=== PATIENT | female | born 1985 | race Caucasian/White ===

== ENCOUNTER 2018-12-22 15:53 | Emergency (ER) | payer OTHER ==
[2018-12-22 16:09] VITALS: O2SAT 100
[2018-12-22] MEDS ORDERED: Sodium Chloride 0.9% 1000 ML 1,000 ML IV STA (16:15)
[2018-12-22] MEDS ORDERED: BABY ASPIRIN 81 MG CHEW PO ONE (16:15)
--- NOTE | 2018-12-22 16:19 | ERPHSYRPT ---
- History of Present Illness Time Seen by Provider: 12/22/18 16:17 Historian: patient Patient Subjective Stated Complaint: pt here for sob for over a month, getting worse. she was seen 2 days ago at a clinic and had blood work done and was told today to follow up in er, pt denies cough or fever, no pain Triage Nursing Assessment: pt alert, walked in, resp easy,skin w/d/pale, chest clear, abd soft , no edema, moves all ext well Physician History: mild to mod palpitations off and on for one month, no injury, no pain, mild shortness of breath, no fever, does not smoke, no family hx cad Aspirin Treatment Today: provided by ED Allergies/Adverse Reactions: adhesive Allergy (Verified 12/22/18 16:09) latex Allergy (Verified 12/22/18 16:09) Home Medications: Multivitamin/Iron/Folic Acid [Centrum Adults Tablet] 1 ea DAILY 12/22/18 [ History] Hx Influenza Vaccination/Date Given: No Hx Pneumococcal Vaccination/Date Given: No Immunizations Up to Date: Yes - Review of Systems Constitutional: No Fever Eyes: No Eye Redness Ears, Nose, & Throat: No Mouth Pain Respiratory: Dyspnea, No Cyanosis Cardiac: No Chest Pain Abdominal/Gastrointestinal: No Abdominal Pain, No Vomiting Musculoskeletal: No Back Pain, No Neck Pain Skin: No Rash Neurological: No Focal Weakness - Past Medical History Pertinent Past Medical History: No - Past Surgical History Past Surgical History: Yes Gastrointestinal: Cholecystectomy, Other Female Surgical History: Section Other Surgical History: gastric bypass, tummy tuck, thigh lift, - Social History Smoking Status: Never smoker Exposure to second hand smoke: No Drug Use: none Patient Lives Alone: No - Female History Hx Last Menstrual Period: 2016 Hx Now: No - Nursing Vital Signs Nursing Vital Signs: Initial Vital Signs Temperature 97.8 F 12/22/18 16:02 Pulse Rate 80 12/22/18 16:02 Respiratory Rate 14 12/22/18 16:02 Blood Pressure 128/87 12/22/18 16:02 O2 Sat by Pulse Oximetry 100 12/22/18 16:02 Pain Scale Pain Intensity 4 - Physical Exam General Appearance: no apparent distress Eye Exam: PERRL/EOMI Ears, Nose, Throat Exam: moist mucous membranes Neck Exam: normal inspection Respiratory Exam: normal breath sounds Cardiovascular Exam: regular rate/rhythm Gastrointestinal/Abdomen Exam: soft, No tenderness Back Exam: No CVA tenderness Extremity Exam: pelvis stable Neurologic Exam: alert, oriented x 3, cooperative Skin Exam: normal color, warm, dry SpO2 Interpretation: normal SpO2: 100 - Course Nursing assessment & vital signs reviewed: Yes EKG Interpreted by Me: Sinus Rhythm, Other (no stemi) - Radiology Exams Chest X-ray Interpretation: Discussed w/ radiologist, Negative Ordered Tests: Active Orders 24 hr Category Date Time Status Correctional Manager STAT Care 12/22/18 16:15 Active EKG-ER Only STAT Care 12/22/18 16:15 Active IV Insertion STAT Care 12/22/18 16:15 Active CHEST 1 VIEW (PORTABLE) Stat Exams 12/22/18 16:15 Completed CBC W DIFF Stat Lab 12/22/18 16:25 Completed CMP Stat Lab 12/22/18 16:25 Completed D-DIMER QUANTITATION Stat Lab 12/22/18 16:25 Completed HCG QUALITATIVE,SERUM Stat Lab 12/22/18 16:25 Completed TROPONIN Q3H Lab 12/22/18 16:25 Completed TROPONIN Q3H Lab 12/22/18 19:15 Ordered TROPONIN Q3H Lab 12/22/18 22:15 Ordered TROPONIN Q3H Lab 12/23/18 01:15 Ordered TROPONIN Q3H Lab 12/23/18 04:15 Ordered Urine Triage Profile Stat Lab 12/22/18 16:15 Uncollected Medication Summary Discontinued Medications Generic Name Dose Route Start Last Admin Trade Name Freq PRN Reason Stop Dose Admin Aspirin 324 mg 12/22/18 16:15 12/22/18 16:29 Baby Aspirin 81 Mg Chew PO 12/22/18 16:16 324 mg STAT ONE Administration Aspirin Confirm 12/22/18 16:28 Baby Aspirin 81 Mg Chew Administered 12/22/18 16:29 Dose 324 mg .ROUTE .STK-MED ONE Sodium Chloride 1,000 mls @ 999 mls/hr 12/22/18 16:15 12/22/18 16:30 Sodium Chloride 0.9% 1000 Ml IV 12/22/18 17:15 999 mls/hr .Q1H1M STA Administration Sodium Chloride Confirm 12/22/18 16:28 Sodium Chloride 0.9% 1000 Ml Administered 12/22/18 16:29 Dose 1,000 mls @ ud .ROUTE .STK-MED ONE Lab/Rad Data: Laboratory Result Diagrams 12/22/18 16:25 12/22/18 16:25 Laboratory Results 12/22/18 12/22/18 12/22/18 Range/Units 16:25 16:25 16:25 WBC (4.0-10.5) K/mm3 RBC (4.1-5.4) M/mm3 Hgb (12.0-16.0) gm/dl Hct (35-47) % MCV (78-100) fl MCH (26-32) pg MCHC (32-36) g/dl RDW (11.5-14.0) % Plt Count (150-450) K/mm3 MPV (6-9.5) fl Gran % (36.0-66.0) % Eos # (Auto) (0-0.5) Absolute Lymphs (auto) (1.0-4.6) Absolute Monos (auto) (0.0-1.3) Lymphocytes % (24.0-44.0) % Monocytes % (0.0-12.0) % Eosinophils % (0.00-5.0) % Basophils % (0.0-0.4) % Absolute Granulocytes (1.4-6.9) Basophils # (0-0.4) D-Dimer < 215 L (215-500) ng/mL Sodium 140 (137-145) mmol/L Potassium 3.8 (3.5-5.1) mmol/L Chloride 106 (98-107) mmol/L Carbon Dioxide 25 (22-30) mmol/L Anion Gap 14.2 (5-15) MEQ/L BUN 8 (7-17) mg/dL Creatinine 0.55 (0.52-1.04) mg/dL Estimated GFR > 60.0 ML/MIN Glucose 83 (74-106) mg/dL Calcium 10.2 (8.4-10.2) mg/dL Total Bilirubin 0.50 (0.2-1.3) mg/dL AST 17 (14-36) U/L ALT 12 (0-35) U/L Alkaline Phosphatase 45 (38-126) U/L Troponin I (0.000-0.034) ng/mL Serum Total Protein 7.6 (6.3-8.2) g/dL Albumin 4.4 (3.5-5.0) g/dL Serum , Qual NEGATIVE (Negative) 12/22/18 12/22/18 Range/Units 16:25 16:25 WBC 5.0 (4.0-10.5) K/mm3 RBC 4.27 (4.1-5.4) M/mm3 Hgb 11.7 L (12.0-16.0) gm/dl Hct 36.5 (35-47) % MCV 85.5 (78-100) fl MCH 27.4 (26-32) pg MCHC 32.1 (32-36) g/dl RDW 14.8 H (11.5-14.0) % Plt Count 176 (150-450) K/mm3 MPV 11.9 H (6-9.5) fl Gran % 49.0 (36.0-66.0) % Eos # (Auto) 0.04 (0-0.5) Absolute Lymphs (auto) 1.88 (1.0-4.6) Absolute Monos (auto) 0.60 (0.0-1.3) Lymphocytes % 37.8 (24.0-44.0) % Monocytes % 12.0 (0.0-12.0) % Eosinophils % 0.8 (0.00-5.0) % Basophils % 0.4 (0.0-0.4) % Absolute Granulocytes 2.44 (1.4-6.9) Basophils # 0.02 (0-0.4) D-Dimer (215-500) ng/mL Sodium (137-145) mmol/L Potassium (3.5-5.1) mmol/L Chloride (98-107) mmol/L Carbon Dioxide (22-30) mmol/L Anion Gap (5-15) MEQ/L BUN (7-17) mg/dL Creatinine (0.52-1.04) mg/dL Estimated GFR ML/MIN Glucose (74-106) mg/dL Calcium (8.4-10.2) mg/dL Total Bilirubin (0.2-1.3) mg/dL AST (14-36) U/L ALT (0-35) U/L Alkaline Phosphatase (38-126) U/L Troponin I < 0.012 (0.000-0.034) ng/mL Serum Total Protein (6.3-8.2) g/dL Albumin (3.5-5.0) g/dL Serum , Qual (Negative) - Progress Progress: improved Air Movement: good Progress Note: 12/22/18 18:24 differential d/w pt as anxiety, dehydration, see your doctor, may need stress testing, return if worse Counseled pt/family regarding: lab results, diagnosis, need for follow-up, rad results - Departure Departure Disposition: Home Clinical Impression: Palpitations Condition: Stable Critical Care Time: No Referrals: JAMES ANTONIO MD [Primary Care Provider] - Instructions: Palpitations (DC)
[2018-12-22] MEDS ORDERED: BABY ASPIRIN 81 MG CHEW ONE (16:28)
[2018-12-22] MEDS ORDERED: Sodium Chloride 0.9% 1000 ML 1,000 ML ONE (16:28)
--- NOTE | 2018-12-22 16:33 | XRAY ---
Indication: Palpitations. Comparison: None Portable chest demonstrates normal heart, lungs, and bony thorax.
[2018-12-22 16:41] LABS: BASOPHIL % 0.4 % (0.0-0.4); Basophil (Absolute #) 0.02 (0-0.4); Eosinophil % 0.8 % (0.00-5.0); Eosinophil (Absolute #) 0.04 (0-0.5); Granulocyte Absolute (ANC) 2.44 (1.4-6.9); Hematocrit 36.5 % (35-47); Hemoglobin 11.7 gm/dl (12.0-16.0); Lymphocyte (Absolute #) 1.88 (1.0-4.6); Lymphocytes % 37.8 % (24.0-44.0); Mean Cell Volume 85.5 fl (78-100); Mean Corpuscular Hemoglobin 27.4 pg (26-32); Mean Corpuscular Hgb Concent. 32.1 g/dl (32-36); Mean Platelet Volume 11.9 fl (6-9.5); Platelet Count 176 K/mm3 (150-450); Red Blood Count 4.27 M/mm3 (4.1-5.4); Red Cell Distribution Width 14.8 % (11.5-14.0)
[2018-12-22 17:18] LABS: ALBUMIN 4.4 g/dL (3.5-5.0); ALKALINE PHOSPHATASE 45 U/L (38-126); ANION GAP 14.2 MEQ/L (5-15); BLOOD UREA NITROGEN 8 mg/dL (7-17); CHLORIDE 106 mmol/L (98-107); Calcium 10.2 mg/dL (8.4-10.2); Carbon Dioxide 25 mmol/L (22-30); Creatinine 1 0.55 mg/dL (0.52-1.04); Glucose 83 mg/dL (74-106); Potassium 3.8 mmol/L (3.5-5.1); SGOT/AST 17 U/L (14-36); SGPT/ALT 12 U/L (0-35); SODIUM 140 mmol/L (137-145); Total Protein 7.6 g/dL (6.3-8.2)
[2018-12-22 19:10] VITALS: BP 109/74; PULSE 97
== END 2018-12-22 19:23 | disposition home or self-care (01) ==
LOC: ED 15:53
DX: R00.2 Palpitations (principal)
CPT/HCPCS: 36000; 36415; 71045; 80053; 81025; 84484; 85025; 85379; 93005; 93041; 96360; 99284; A9270-GY